=== PATIENT | female | born 1990 | race Caucasian/White ===

== ENCOUNTER 2021-08-24 06:00 | Day surgery (SDC) | payer OTHER ==
[~2021-08-24 06:00] MED LIST: B COMPLETE1 TAB; OBTREX DHA COM1 EACH PO; PRENATAL1 TAB
== END 2021-08-24 14:20 | disposition home or self-care (01) ==
LOC: CIR.AMB 06:00
PROVIDERS: ATTEND Obstetrics & Gynecology Maternal & Fetal Medicine
DX: O65.5 Obstructed labor due to abnormality of maternal pelvic organs (principal); O34.32 Maternal care for cervical incompetence, second trimester; Z3A.16 16 weeks gestation of pregnancy; Z88.6 Allergy status to analgesic agent; Z88.8 Allergy status to other drugs, medicaments and biological substances